=== PATIENT | female | born 1950 | race Caucasian/White ===

== ENCOUNTER → 2017-08-26 | Outpatient (CLI) | payer OTHER | END | disposition home or self-care (01) | LOC: RAD 07-20 13:28 | DX: M75.101 Unspecified rotator cuff tear or rupture of right shoulder, not specified as traumatic (principal) ==

== ENCOUNTER → 2021-05-01 | Outpatient (CLI) | payer OTHER ==
[~2021-05-01] VITALS: Ht 162.6 cm; Wt 54.4 kg
[~2021-05-01] MED LIST: ACYCLOVIR 400400 MG PO; ASA81BEC PO; CEPHALEXIN500 MG PO; CEVIMELINE HCL30 MG PO; CYTOMEL 5MCG TA5 MCG PO; DICLOFENAC SODI75 MG PO; FLEXERIL PO; GABAPENTIN 100100 MG PO; HYDROCHLOROTH12.5 M1 PO; HYDROCODON-ACE1 EA11 PO; KLOR-CON M2020 MEQ PO; LATANOPROST 0.2.5 ML OPHTHALMIC; LEVOTHYROXINE137 MC1 PO; METHOTREXATE 22.5 M1 PO; ONDANSETRON ODT8 MG PO; OXYBUTYNIN 5 MG5 M2 PO; PROTONIX40 M2 PO; REQUIP 1 MG TABL1 M1 PO; RESTASIS1 EACH OPHTHALMIC; TRAZODONE HCL100 MG PO; XOLAIR150 MG/1 M SUBQ; [UNRECOGNIZED DRUG - OTHER]
[2021-05-01 13:11] VITALS: BP 125/94
--- NOTE | 2021-05-01 13:41 | NUR ---
Pain Clinic Assessment: 1. History of Osteoarthritis: OSEOPOROSIS ARTHTRITIS CERVICAL, THORACIC AND LUMBAR SPINE History of Rheumatoid Arthritis: DENIES 2. Height: 5 ft. 4 in. 162.6 cm. Weight: 120.0 lb. oz. 54.432 kg. Patient's BMI: 20.6 3. Vital Signs: BP: 125/94 Pulse: 91 Resp: 14 Temp: 02 Sat: 98 ECG Mon: 4. Pain Intensity: 8 TO 10 5. Fall Risk: Dizziness: Y Needs help standing or walking: Y Fallen in the last 3 months: Y Fall risk comments: 6. Patient on Blood Thinner: None 7. History of Hypertension: N 8. Opioid Therapy greater than 6 weeks: Y Opiate Contract Signed: 9. Risk Assessment Tool Provided: LOW-0 10. Functional Assessment Tool: 64/70 11. Recreational Drug Use: Never Drug Type: Tobacco Use: Never Smoker Tobacco Type: Amount or Packs/day: How Many Years: Alcohol Use: Yes Frequency: Daily Quant: 1
== END | disposition home or self-care (01) ==
LOC: PAIN 12:09
PROVIDERS: ATTEND Anesthesiology Pain Medicine
DX: M53.3 Sacrococcygeal disorders, not elsewhere classified (principal); M46.1 Sacroiliitis, not elsewhere classified; M19.90 Unspecified osteoarthritis, unspecified site; H40.9 Unspecified glaucoma; Z98.890 Other specified postprocedural states; Z79.899 Other long term (current) drug therapy; Z96.611 Presence of right artificial shoulder joint; Z96.612 Presence of left artificial shoulder joint; Z91.041 Radiographic dye allergy status; Z88.0 Allergy status to penicillin; Z88.8 Allergy status to other drugs, medicaments and biological substances

== ENCOUNTER → 2021-06-05 | Outpatient (CLI) | payer OTHER ==
[~2021-06-05] VITALS: Ht 162.6 cm; Wt 54.9 kg
[2021-06-05 10:30] VITALS: BP 114/76
--- NOTE | 2021-06-05 10:42 | NUR ---
Pain Clinic Assessment: 1. History of Osteoarthritis: OSEOPOROSIS ARTHTRITIS CERVICAL, THORACIC AND LUMBAR SPINE History of Rheumatoid Arthritis: DENIES 2. Height: 5 ft. 4 in. 162.6 cm. Weight: 121.0 lb. oz. 54.885 kg. Patient's BMI: 20.8 3. Vital Signs: BP: 114/76 Pulse: 98 Resp: 16 Temp: 02 Sat: 98 ECG Mon: 4. Pain Intensity: 4 5. Fall Risk: Dizziness: N Needs help standing or walking: N Fallen in the last 3 months: N Fall risk comments: 6. Patient on Blood Thinner: None 7. History of Hypertension: N 8. Opioid Therapy greater than 6 weeks: Y Opiate Contract Signed: 9. Risk Assessment Tool Provided: LOW-0 10. Functional Assessment Tool: 64/70 11. Recreational Drug Use: Never Drug Type: Tobacco Use: Never Smoker Tobacco Type: Amount or Packs/day: How Many Years: Alcohol Use: No Frequency: Quant:
== END | disposition home or self-care (01) ==
LOC: PAIN 06:51
PROVIDERS: ATTEND Anesthesiology Pain Medicine
DX: M53.3 Sacrococcygeal disorders, not elsewhere classified (principal); M96.1 Postlaminectomy syndrome, not elsewhere classified; M81.0 Age-related osteoporosis without current pathological fracture; Z98.890 Other specified postprocedural states; Z79.899 Other long term (current) drug therapy; Z88.0 Allergy status to penicillin; Z88.8 Allergy status to other drugs, medicaments and biological substances; Z91.041 Radiographic dye allergy status